=== PATIENT | female | born 1960 | race Caucasian/White ===

== ENCOUNTER 2020-01-03 12:17 | Outpatient (CLI) | payer BC, SELFPAY ==
--- NOTE | 2020-01-03 13:31 | ECG_ITS ---
Measurements Intervals [place] Rate: 57 P: 0 OR: 167 QRS: -29 QRSD: 94 T: 17 QT: 451 QTc: 442 Interpretive Statements SINUS BRADYCARDIA DELAYED PRECORDIAL R/S TRANSITION BORDERLINE T WAVE ABNORMALITY- INFERIOR LEADS BORDERLINE ECG Electronically Signed On 01-03-2020 14:18:04 CLIENT SERVICE EXECUTIVE by Juvencio North D.O.
[2020-01-03 14:16] LABS: Basophils Absolute Auto 0.1 K/mm3 (0.0-0.1); Basophils Percent Auto 0.7 % (0.2-1.2); Eosinophils Absolute Auto 0.3 K/mm3 (0-0.3); Eosinophils Percent Auto 3.5 % (0-4.4); Hemoglobin 14.9 g/dL (12.0-15.0); Immature Granulocyte Absolute 0.02 K/mm3 (0.00-0.031); Immature Granulocyte Percent A 0.2 % (0-0.5); Lymphocytes Absolute Auto 3.64 K/mm3 (0.9-3.2); Lymphocytes Percent Auto 38.4 % (18.3-44.2); Mean Corpuscular HGB Conc 32.4 g/dl (32-36); Mean Corpuscular Hemoglobin 31.8 pg (26-34); Mean Corpuscular Volume 98.1 fl (80-100); Mean Platelet Volume 11.6 fl (7.4-10.4); Monocytes Absolute Auto 0.9 K/mm3 (0.1-0.6); Monocytes Percent Auto 9.3 % (2.6-8.5); Neutrophils Absolute Auto 4.5 K/mm3 (1.3-6.7); Neutrophils Percent Auto 47.9 % (45.5-73.1); Platelet Count Result 228 k/mm3 (150-375); Red Blood Count 4.69 M/mm3 (4.2-5.4); Red Cell Distribution Width 13.3 % (11.5-14.5); White Blood Count 9.5 K/mm3 (4.5-10.0)
[2020-01-03 14:24] LABS: Urine Cotinine NEGATIVE
[2020-01-03 14:24] LABS: Hemoglobin A1C 5.5 % (<5.7)
[2020-01-03 14:26] LABS: INR 0.9; Prothrombin Time 11.8 Seconds (11.1-14.7)
[2020-01-03 14:33] LABS: Albumin Level 4.4 g/dL (3.5-5.1); Blood Urea Nitrogen 12 mg/dL (7-17); Calcium 9.5 mg/dL (8.4-10.2); Carbon Dioxide 28 mmol/L (22-30); Chloride 98 mmol/L (98-107); Estimated Glomerular Filt Rate > 60; Glucose 95 mg/dL (65-105); Sodium 140 mmol/L (137-145)
[2020-01-03 14:53] LABS: Add Urine Microscopic? YES; Appearance Urine Clear (Clear); Bilirubin Urine Negative (Negative); Blood Urine Negative (Negative); Color Urine Yellow (Yellow); Glucose Urine UA Negative (Negative); Ketones Urine 1+ mg/dL (Negative); Leukocyte Esterase Ur Negative LEU/UL (Negative); Mucus Urine Rare /lpf; Nitrate Urine Negative (Negative); Protein Urine Negative (Negative); RBC Urine 0-2 /hpf (0-2); Specific Grav Ur 1.014 (1.001-1.035); Squamous Epithelial Cell Urine Rare /hpf (Few); Urobilinogen Urine Negative mg/dL (<2.0); WBC Urine 0-3 /hpf
== END 2020-01-03 12:18 | disposition home or self-care (01) ==
LOC: ANHSURGERY 12:22
PROVIDERS: PCP Internal Medicine; Visit Provider Orthopaedic Surgery
DX: M17.11 Unilateral primary osteoarthritis, right knee (principal); R94.31 Abnormal electrocardiogram [ECG] [EKG]
CPT/HCPCS: 36415; 80048; 80307; 81001; 82040; 83036; 85025; 85610; 85730; 87081; 93005

== ENCOUNTER 2020-01-12 13:33 | Outpatient (CLI) | payer BC, SELFPAY ==
--- NOTE | ~2020-01-12 | US_ITS ---
EXAMINATION: US venous doppler LE EXAM DATE: 01/12/2020 14:19 INDICATION: Preoperative right knee replacement. TECHNIQUE: Multiple grayscale, color flow and Doppler images of the lower extremity deep venous syste ms bilaterally were obtained and reviewed. There is no prior study for comparison. FINDINGS: Right side: The right common femoral, femoral and profunda veins demonstrate normal color flow, respi ratory variation, augmentation and compressibility. Compressibility, color flow confirmed within the right popliteal, posterior tibial, peroneal, and greater saphenous veins. Left side: The left common femoral, femoral and profunda veins demonstrate normal color flow, respira tory variation, augmentation and compressibility. Compressibility, color flow confirmed within the l eft popliteal, posterior tibial, peroneal, and greater saphenous veins. IMPRESSION: 1. No lower extremity deep venous thrombosis bilaterally. Reviewed, dictated and finalized at location B.
== END 2020-01-12 13:34 | disposition home or self-care (01) ==
LOC: ANHIMG 13:35
PROVIDERS: PCP Internal Medicine; Visit Provider Orthopaedic Surgery
DX: Z01.818 Encounter for other preprocedural examination (principal); M17.11 Unilateral primary osteoarthritis, right knee
CPT/HCPCS: 93970

== ENCOUNTER 2020-05-12 10:31 | Outpatient (CLI) | payer BC, SELFPAY ==
[2020-05-12 11:13] LABS: Blood Urea Nitrogen 10 mg/dL (7-17); Calcium 8.8 mg/dL (8.4-10.2); Carbon Dioxide 28 mmol/L (22-30); Chloride 106 mmol/L (98-107); Cholesterol 169 mg/dL (0-200); Estimated Glomerular Filt Rate > 60; Glucose 106 mg/dL (65-105); HDL Direct 87 mg/dL; Potassium 3.8 mmol/L (3.4-5.0); Sodium 139 mmol/L (137-145); Triglycerides 67 mg/dL (<150)
[2020-05-12 11:23] LABS: LDL Cholesterol Direct 57 mg/dL
== END 2020-05-12 10:32 | disposition home or self-care (01) ==
LOC: ANHLAB 10:33
PROVIDERS: PCP Internal Medicine; Visit Provider Internal Medicine
DX: Z13.6 Encounter for screening for cardiovascular disorders (principal); F34.1 Dysthymic disorder
CPT/HCPCS: 36415; 80048; 80061; 84443

== ENCOUNTER 2020-06-14 09:15 | Outpatient (CLI) | payer BC, SELFPAY ==
--- NOTE | ~2020-06-14 | US_ITS ---
EXAMINATION: US aorta DATE: 06/14/2020 10:07 INDICATION: Family history of abdominal aortic aneurysm and ischemic heart disease TECHNIQUE: Grayscale, color Doppler, and pulsed Doppler images of the aorta and common iliac arteries were obtained. COMPARISON: None. FINDINGS: The proximal aorta measures 2.6 cm. The mid aorta measures 1.1 cm. The distal aorta measures 2.0 cm. The right common iliac artery measures 1.2 cm. The left common iliac artery measures 1.1 cm. IMPRESSION: 1. Normal caliber abdominal aorta. Reviewed, dictated and finalized at location A.
== END 2020-06-14 09:16 | disposition home or self-care (01) ==
PROVIDERS: PCP Internal Medicine; Visit Provider Nurse Practitioner
DX: Z82.49 Family history of ischemic heart disease and other diseases of the circulatory system (principal)
CPT/HCPCS: 76775

== ENCOUNTER 2022-02-22 00:34 | Day surgery (SDC) | payer BC, SELFPAY ==
[2022-02-08 13:16] VITALS: BMI 34.5
[2022-02-22 10:50] VITALS: BP 128/78; PULSE 70; RESP 19; TEMP 36.6; O2SAT 98
[2022-02-22] MEDS: LACTATED RINGERS 1,000 ML 150 ML IV CONT (11:04)
--- NOTE | 2022-02-22 11:29 | PM.HPGS ---
History of Present Illness History of Present Illness Consent: Risks, benefits, and alternatives have been discussed and questions answered. Patient agrees to proceed with procedure. Chief complaint: neoplasm screening Narrative: Kiley Ann is a 61 year old female here for screening colonoscopy, last one about 6-7 years ago. Review of Systems Constitutional: Constitutional: Denies headache(s) and Denies weakness Eyes: Eyes: Denies blurry vision ENT: Reports Normal hearing present, Denies headache(s) and Denies neck pain Cardiovascular: Cardiovascular: Denies chest pain and Denies dyspnea Respiratory: Respiratory: Denies dyspnea Gastrointestinal: Gastrointestinal: Reports no additional gastrointestinal complaints Genitourinary: Genitourinary: Denies dysuria Musculoskeletal: Musculoskeletal: Denies neck pain Integumentary/Breasts: Skin/Breast: Denies dry skin Neurologic: Reports Normal hearing present, Denies headache(s) and Denies weakness Psychiatric: Psychiatric: Denies anxiety Endocrine: Endocrine: Denies change in body appearance Hematologic/Lymphatic: Hematologic/Lymphatic: Denies easy bleeding Allergic/Immunologic: Allergic/Immunologic: Denies urticaria PMFSH Past Medical History Medical History Actinic keratosis Anxiety Depression Family history of abdominal aortic aneurysm (AAA) Great toe pain Injury of left toe Left knee DJD OAB (overactive bladder) Preop examination Pulmonary embolism Right knee DJD Skin cancer screening Urinary frequency Surgical History Surgical History S/P splenectomy Status post wisdom tooth extraction Family History Family History Mother Hypertension, Onset Age: 73 Family history of arthritis Family history of diabetes mellitus in first degree relative Family history of coronary artery disease Patient's mother is Family history of malignant neoplasm of uterus Acute myocardial infarction, Onset Age: 73 Diabetes mellitus, Onset Age: 73 Family history of malignant neoplasm of cervix, Onset Age: 73 Grandparent Hypertension Sibling Family history of coronary artery disease Patient's brother is Acute myocardial infarction Father Patient's father is Family history of aortic aneurysm Acute myocardial infarction, Onset Age: 72 Other Family history of attention deficit hyperactivity disorder (ADHD) Family history of cardiovascular disease Family history of mental disorder Social History Social History Smoking status: Never smoker Second hand tobacco smoke exposure: No Alcohol intake: current Drinks per week: 14 Alcohol use details: Frequently Substance use: never Substance use type: does not use Living arrangements: alone Spiritual care concerns: No Meds Home Medications and Allergies Home Medications Medication Instructions Recorded Confirmed Type aspirin [Adult Low Dose Aspirin] 81 mg PO DAILY 01/03/20 02/08/22 History escitalopram oxalate 20 mg tablet See Rx Instructions .ROUTE 12/12/20 02/08/22 Rx .COMPLEX #90 tablet zkgqsgpaldgl-Uh-cnak-minerals 1 tablet PO EVERY OTHER DAY 02/26/21 02/08/22 History valacyclovir 500 mg tablet 500 mg PO DAILY 06/04/21 02/08/22 History mirabegron 50 mg tablet,extended See Rx Instructions .ROUTE 11/22/21 02/08/22 Rx release 24 hr .COMPLEX #90 tablet Allergies Allergy/AdvReac Type Severity Reaction Status Date / Time oxybutynin Allergy Severe DRY MOUTH, Verified 02/22/22 10:49 SORES codeine AdvReac Severe DROWSINESS Verified 02/22/22 10:49 Vital Signs Vital Signs - 24 hr 02/22/22 10:50 Temperature 98 F Pulse Rate 70 Respiratory Rate 19 Blood Pressure 128/78 Pulse Oximetry 98
--- NOTE | 2022-02-22 11:32 | WPDANESEPPF ---
Anes - Initial Pre Proc Eval Procedure: Operation Date: 02/22/22 11:30 Proposed Procedures p Screening Colonoscopy - Maninder Diaz MD Date/Time: 02/22/22 11:32 Surgeon: Maninder Diaz MD Pre Op Diagnosis: neoplasm screening Patient Data Age: 61 Gender: F Height: 1.7 m Weight: 98.6 kg Last Vital Signs Temp 98 F 02/22/22 10:50 Pulse 70 02/22/22 10:50 Resp 19 02/22/22 10:50 BP 128/78 02/22/22 10:50 Pulse Ox 98 02/22/22 10:50 Allergies Allergy/AdvReac Type Severity Reaction Status Date / Time oxybutynin Allergy Severe DRY MOUTH, Verified 02/22/22 10:49 SORES codeine AdvReac Severe DROWSINESS Verified 02/22/22 10:49 Home Medications Medication Instructions Recorded Confirmed Type aspirin [Adult Low Dose Aspirin] 81 mg PO DAILY 01/03/20 02/08/22 History escitalopram oxalate 20 mg tablet See Rx Instructions .ROUTE 12/12/20 02/08/22 Rx .COMPLEX #90 tablet ojnugvsctobp-Mh-vuny-minerals 1 tablet PO EVERY OTHER DAY 02/26/21 02/08/22 History valacyclovir 500 mg tablet 500 mg PO DAILY 06/04/21 02/08/22 History mirabegron 50 mg tablet,extended See Rx Instructions .ROUTE 11/22/21 02/08/22 Rx release 24 hr .COMPLEX #90 tablet Patient hx anesthesia problems: none Family hx anesthesia problems: none Results Review: All pre-operative results and documents have been reviewed as part of the pre-operative evaluation. [facility] Past Medical History Medical History Actinic keratosis Anxiety Depression Family history of abdominal aortic aneurysm (AAA) Great toe pain Injury of left toe Left knee DJD OAB (overactive bladder) Preop examination Pulmonary embolism Right knee DJD Skin cancer screening Urinary frequency Surgical History Surgical History S/P splenectomy Status post wisdom tooth extraction Family History Family History Mother Hypertension, Onset Age: 73 Family history of arthritis Family history of diabetes mellitus in first degree relative Family history of coronary artery disease Patient's mother is Family history of malignant neoplasm of uterus Acute myocardial infarction, Onset Age: 73 Diabetes mellitus, Onset Age: 73 Family history of malignant neoplasm of cervix, Onset Age: 73 Grandparent Hypertension Sibling Family history of coronary artery disease Patient's brother is Acute myocardial infarction Father Patient's father is Family history of aortic aneurysm Acute myocardial infarction, Onset Age: 72 Other Family history of attention deficit hyperactivity disorder (ADHD) Family history of cardiovascular disease Family history of mental disorder Social History Social History Smoking status: Never smoker Second hand tobacco smoke exposure: No Alcohol intake: current Drinks per week: 14 Alcohol use details: Frequently Substance use: never Substance use type: does not use Living arrangements: alone Spiritual care concerns: No Anes - Eval Final PreProcedure Day of Procedure 02/22/22 11:32 Patient weight: obese Heart: regular rate and rhythm Lungs: clear to auscultation Airway: Mallampati scale class II Neurological: alert and oriented Last oral intake: >/= 8 hours ASA classification: II Emergent: no Anesthetic plan: proceed Anesthesia type and monitoring: general GIVS and standard monitoring Results Review: All pre-operative results and documents have been reviewed as part of the pre-operative evaluation. Informed Consent: The patient's anesthetic plan and its attendant risks and benefits were discussed with the patient/family/POA. Questions were solicited and answers provided to the satisfaction of the patient/family/
[2022-02-22 11:53] VITALS: BP 84/46; PULSE 73; RESP 17; O2SAT 98
[2022-02-22 12:03] VITALS: BP 116/66; PULSE 70; RESP 14; O2SAT 98
[2022-02-22 12:15] VITALS: BP 114/62; PULSE 71; RESP 12; O2SAT 98
== END 2022-02-22 12:20 | disposition home or self-care (01) ==
PROVIDERS: PCP Internal Medicine; Visit Provider Internal Medicine Gastroenterology
PROC: 0DJD8ZZ Inspection of Lower Intestinal Tract, Via Natural or Artificial Opening Endoscopic (ICD-10-PCS; CPT 45378; principal; 2022-02-22 11:30)
DX: Z12.11 Encounter for screening for malignant neoplasm of colon (principal); K63.5 Polyp of colon; K57.30 Diverticulosis of large intestine without perforation or abscess without bleeding; K64.8 Other hemorrhoids; Z79.82 Long term (current) use of aspirin; F41.8 Other specified anxiety disorders; N32.81 Overactive bladder; E66.9 Obesity, unspecified; Z68.34 Body mass index [BMI] 34.0-34.9, adult
CPT/HCPCS: 45380; 88305; J2704; J7120

== ENCOUNTER 2022-04-19 13:56 | Outpatient (CLI) | payer BC, SELFPAY ==
--- NOTE | ~2022-04-19 | DEXA_ITS ---
Bone Density Report Name: DEBORAH MCFADDEN Age: 61 Sex: Female Ethnicity: White Date of : 1960 Indication: postmenopausal; screening for osteoporosis; height loss; prior fracture; Referring Provider: LETHA MARIE Study: Bone densitometry was performed. Exam Date: April 19, 2022 Accession number: [id number] Bone Density: Region BMD T-score Z-score Classification AP Spine(L1-L4) 0.921 -1.1 0.2 Osteopenia Femoral Neck (Left) 0.696 -1.4 -0.1 Osteopenia Total Hip (Left) 0.846 -0.8 0.1 Normal Femoral Neck (Right) 0.706 -1.3 0.0 Osteopenia Total Hip (Right) 0.819 -1.0 -0.1 Normal Total Hip Mean 0.832 -0.9 0.0 Normal World Health Organization criteria for BMD impression classify patients as: Normal (T-score at or above -1.0), Osteopenia (T-score between -1.0 and -2.5), or Osteoporosis (T-score at or below -2.5). 10-year Fracture Risk(1): Major Osteoporotic Fracture 12% Hip Fracture 0.8% Reported Risk Factors: [place] (), Neck BMD=0.696, BMI=37.5, previous fracture (1) FRAX(R) Version 3.08. Fracture probability calculated for an untreated patient. Fracture probability may be lower if the patient has received treatment. Clinical Information Provided by Patient: Has had a low trauma fracture Patient maximum height was 67 Menopause Age: 52 No regular weight bearing exercise Drinks caffeinated beverages Onset of menses at age 13 Number of children 1 Impression: The patient has low bone mass, based on the Left Femoral Neck T-score. The patient has an estimated ten-year risk of hip fracture of 0.8% and an estimated ten-year risk of major fracture of 12%, based on the WHO FRAX algorithm. The patient has risk factors, including: previous fracture. Discussion: BONE DENSITY IS LOW AT ONE OR MORE SKELETAL SITES. This patient's lowest T-score is low at one or more skeletal sites. It meets the World Health Organization's (WHO) criteria for ?low bone mass? (T-score between -1.0 and -2.5). The patient's 10-year risk of fracture as calculated by FRAX is less than the threshold where pharmacological therapy is recommended by the National Osteoporosis Foundation (NOF). However, all treatment decisions require clinical judgment and consideration of individual patient factors, including patient preferences, comorbidities, previous drug use, risk factors not captured in the FRAX model (e.g., frailty, falls, vitamin D deficiency, increased bone turnover, interval significant decline in bone density) and possible under or overestimation of fracture risk by FRAX. The patient should follow a healthful lifestyle (good nutrition with adequate calcium and vitamin D, and appropriate weight-bearing exercise). Follow-Up: Consider repeating this study in 2 to 3 years to reassess this patient's stat
== END 2022-04-19 13:57 | disposition home or self-care (01) ==
LOC: ANHIMG 13:57
PROVIDERS: PCP Internal Medicine; Visit Provider Nurse Practitioner
DX: Z78.0 Asymptomatic menopausal state (principal); M85.88 Other specified disorders of bone density and structure, other site; M85.852 Other specified disorders of bone density and structure, left thigh; M85.851 Other specified disorders of bone density and structure, right thigh
CPT/HCPCS: 77080

== ENCOUNTER 2022-10-14 13:12 | Outpatient (CLI) | payer BC, SELFPAY ==
--- NOTE | ~2022-10-14 | XR_ITS ---
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 RESULT: Lines, tubes, and devices: None. Lungs and pleura: Clear. Cardiomediastinal silhouette: Stable. Other: No acute osseous or upper abdominal finding. Calcified splenic artery aneurysm. Right upper q uadrant surgical clip IMPRESSION: No acute cardiopulmonary process. Reviewed, dictated and finalized at location K. [employer]IV[employer]ITY FACULTY MEMBER
== END 2022-10-14 13:13 | disposition home or self-care (01) ==
PROVIDERS: PCP Internal Medicine; Visit Provider Internal Medicine
DX: J06.9 Acute upper respiratory infection, unspecified (principal)
CPT/HCPCS: 71046

== ENCOUNTER 2022-12-10 11:41 | Outpatient (NON) | payer BC, SELFPAY | END 2022-12-10 11:42 | disposition home or self-care (01) | PROVIDERS: PCP Internal Medicine; Visit Provider Nurse Practitioner | DX: D49.2 Neoplasm of unspecified behavior of bone, soft tissue, and skin (principal) | CPT/HCPCS: 88305 ==

== ENCOUNTER 2024-01-09 15:12 | Outpatient (CLI) | payer BC, SELFPAY ==
--- NOTE | ~2024-01-09 | XR_ITS ---
EXAMINATION: XR foot LT 2V DATE: 01/09/2024 15:24 INDICATION: Left foot pain. TECHNIQUE: 2 views of left foot were obtained. COMPARISON: Left foot radiographs 05/09/20 FINDINGS: There is moderate hallux valgus. No acute fracture. There is an old healed fracture of neck of fifth metatarsal. There is mild osteoarthritis of first metatarsophalangeal joint and some of the interphalangeal and midfoot joints. There is an enthesophyte at plantar aspect of calcaneal tuberosi ty. IMPRESSION: 1. Moderate hallux valgus. 2. Mild polyarticular osteoarthritis. Reviewed, dictated and finalized at location E. C ARTIST
== END 2024-01-09 15:13 | disposition home or self-care (01) ==
LOC: ANHIMG 15:14
PROVIDERS: PCP Nurse Practitioner Family; Visit Provider Nurse Practitioner Family
DX: M19.072 Primary osteoarthritis, left ankle and foot (principal); M20.12 Hallux valgus (acquired), left foot
CPT/HCPCS: 73620

== ENCOUNTER 2025-01-17 10:18 | Outpatient (CLI) | payer BC, SELFPAY ==
--- NOTE | ~2025-01-17 | DEXA_ITS ---
Bone Density Report Name: DEBORAH MCFADDEN Age: 64 Sex: Female Ethnicity: White Date of : 1960 Indication: osteopenia; height loss; Referring Provider: ORQUIDEA GRADY Study: Bone densitometry was performed. Exam Date: January 17, 2025 Accession number: [id number] Bone Density: Region BMD T-score Z-score Classification AP Spine(L1-L4) 0.900 -1.3 0.2 Osteopenia Femoral Neck (Left) 0.644 -1.8 -0.5 Osteopenia Total Hip (Left) 0.840 -0.8 0.2 Normal Femoral Neck (Right) 0.670 -1.6 -0.2 Osteopenia Total Hip (Right) 0.816 -1.0 0.1 Normal Total Hip Mean 0.828 -0.9 0.2 Normal World Health Organization criteria for BMD impression classify patients as: Normal (T-score at or above -1.0), Osteopenia (T-score between -1.0 and -2.5), or Osteoporosis (T-score at or below -2.5). 10-year Fracture Risk(1): Major Osteoporotic Fracture 9.0% Hip Fracture 1.0% Reported Risk Factors: [place] (), Neck BMD=0.644, BMI=32.7 (1) FRAX(R) Version 3.08. Fracture probability calculated for an untreated patient. Fracture probability may be lower if the patient has received treatment. Previous Exams: Region Exam Age BMD T-score BMD Change BMD Change Date g/cm2 vs Baseline vs Previous AP Spine (L1-L4) 01/17/2025 64 0.900 -1.3 -0.021 (-2.3%) -0.021 (-2.3%) 04/19/2022 61 0.921 -1.1 Total Hip(Left) 01/17/2025 64 0.840 -0.8 -0.005 (-0.6%) -0.005 (-0.6%) 04/19/2022 61 0.846 -0.8 Total Hip(Right) 01/17/2025 64 0.816 -1.0 -0.002 (-0.3%) -0.002 (-0.3%) 04/19/2022 61 0.819 -1.0 *Denotes significance at 95% confidence level, LSC for AP Spine = 0.022 g/cm2, LSC for Total Hip = 0.027 g/cm2 Clinical Information Provided by Patient: Has used the following medications: Vitamin D, Calcium Patient maximum height was 67 Menopause Age: 52 No regular weight bearing exercise Drinks caffeinated beverages Onset of menses at age 14 Number of children 1 Impression: The patient has low bone mass, based on the Left Femoral Neck T-score. The patient has an estimated ten-year risk of hip fracture of 1% and an estimated ten-year risk of major fracture of 9%, based on the WHO FRAX algorithm. No significant bone loss was observed. Discussion: BONE DENSITY IS LOW AT ONE OR MORE SKELETAL SITES. This patient's lowest T-score is low at one or more skeletal sites. It meets the World Health Organization's (WHO) criteria for ?low bone mass? (T-score between -1.0 and -2.5). The patient's 10-year risk of fracture as calculated by FRAX is less than the threshold where pharmacological therapy is recommended by the National Osteoporosis Foundation (NOF). However, all treatment decisions require clinical judgment and consideration of individual patient factors, including patient preferences, comorbidities, previous drug use, risk factors not captured in the FRAX model (e.g., frailty, falls, vitamin D deficiency, increased bone turnover, interval significant decline in bone density) and possible under or overestimation of fracture risk by FRAX. The patient should follow a healthful lifestyle (good nutrition with adequate calcium and vitamin D, and appropriate weight-bearing exercise). Follow-Up: Consider repeating this study in 2 to 3 years to reassess this patient's status, or sooner if there is some new clinical indication. Reported by: RON on 01/17/2025 10:51:00 AM. Reviewed, dictated and finalized at location A.
--- OUTSIDE RECORDS SUMMARY | 2025-01-17 12:07 | XMS_ITS | Clinical Summary ---
Author Organization [facility] Address [address] [place] [address] Care Team Providers Care Computer Assembler Name Role Phone Vince Steinberg MD Primary Care Provider [phone] [facility],non-owned Affiliates and Associated Physician Practices is amultiple site organization consisting of ambulatory clinics and hospital sitesin [place], [place], [place] and [place]. This disclosure is being madepursuant to the Care Everywhere program and may not contain all information available regarding this patient. Last updated 18.[facility] Social History Tobacco Use Types Packs/Day Years Used Date Smoking Tobacco: Never Assessed Sex and Gender Information Value Date Recorded Sex Assigned at Not on file Gender Identity Not on file Sexual Orientation Not on file Plan of Treatment Health Maintenance Due Date Last Done Comments COLOGUARD (AGES 45-75) - COL ON CA SCREENING 1960 COLON MONITORING 1960 COLONOSCOPY - COLON CA SCREENING 1962 CT COLONOGRAPHY - COLON CA SCREENING 1960 Colorectal Cancer Screening 1960 FIT - COLON CA SCREENING 1962 FLEX SIG - COLON CA SCREENING 1960 MAMMOGRAM 1962 PAP SMEAR 1962 HIV SCREENING 1977 HEPATITIS C SCREENING 07/16/1980 DTAP/TDAP/TD VACCINES (1 - Tdap) 1981 PNEUMOCOCCAL VACCINE 50+ (1 of 1 - PCV) 2012 ZOSTER VACCINE (1 of 2) 2012 COVID-19 VACCINE ( - 2023-2 5 season) 2024 INFLUENZA VACCINE (#1) 2024 DEPRESSION SCREENING 11/03/2024 LIPID TESTING 05/30/2026 05/30/2021 Respiratory Syncytial Virus (RSV) Vaccine Pt: or over 60 yrs (1 - 1-dose 75+ series) 2037 HEPATITIS B VACCINE Aged Out No longe r eligible based on patient's age to complete this topic HIB VACCINE Aged Out No longer eligi ble based on patient's age to complete this topic HPV VACCINE Aged Out No longer eligi ble based on patient's age to complete this topic MENINGOCOCCAL (Group B) VACC INE SHARED DECISION-MAKING Aged Out No longer eligibl e based on patient's age to complete this topic MENINGOCOCCAL GROUPS A/C/Y/W VACCINE Aged Out No longer eligible b ased on patient's age to complete this topic PNEUMOCOCCAL VACCINE Aged Out No long er eligible based on patient's age to complete this topic Procedures Procedure Name Priority Date/Time Associated Diagnosis Comments LIPID PROFILE Routine 05/30/2021 8:35 AM CDT IGT (impaired glucose tolerance) Lipid screening Menopause Reactive depression from Last 3 Months or Most Recently Relevant to Health Maintenance Results * LIPID PROFILE (05/30/2021 8:35 AM CDT) Pathologist [facility] Cholesterol 170 <200 mg/dL 05/30/2021 9:09 AM CDT [facility] Triglycerides 47 <150 mg/dL 05/30/2021 9:09 AM CDT [facility] VLDL Calculated 9 <31 mg/dL 9:09 AM CDT [facility] HDL Cholesterol 87 >40 mg/dL 9:09 AM CDT [facility] LDL Calculated 74 <160 mg/dL 05/30/2021 9:09 AM CDT [facility] Blood BLOOD SPECIMEN / Unknown Lab Venipuncture / Unknown 05/30/2021 8:35 AM CDT 05/30/2021 8:44 AM CDT Narrative [facility] - 05/30/2021 9:09 AM CDT Lipid Profile Comment: *Risk Factors modify LDL Goals. Below is the desirable LDL goal for each combination of risk factors. 0-1 Risk Factor <160 mg/dL Multiple (2+) Risk Factors <130 mg/dL CHD or other forms of atherosclerosis <100 mg/dL Diabetes <100 mg/dL Note: This test is for fasting patients only. A non-fasting state may alter some of these results. Franchesca Elizondo WOOD CASKET MAKER-NUCLEAR WEAPONS CUSTODIAN LAB - CHEMISTRY ORDERABLES [facility] [address] [phone] from Last 3 Months or Most Recently Relevant to Health Maintenance Care Teams Computer Assembler Relationship Specialty [place] [id number] [address] PCP - General 12/30/22
--- OUTSIDE RECORDS SUMMARY | 2025-01-17 12:07 | XMS_ITS | Referral Summary ---
Author Organization [facility] Address [address] [facility] [place] [address] Care Team Providers Care Clamp Jig Assembler Name Role Phone Vince Steniberg MD Primary Care Provider [phone] Source Comments [facility],non-general [facility] Affiliates and Associated Physician Practices is amultiple site organization consisting of ambulatory clinics and hospital sitesin [place], [place], [place] and [place]. This disclosure is being madepursuant to the Care Everywhere program and may not contain all information available regarding this patient. Last updated 18.[facility] [place] Social History Tobacco Use Types Packs/Day Years Used Date Smoking Tobacco: Never Assessed Sex and Gender Information Value Date Recorded Sex Assigned at Not on file Gender Identity Not on file Sexual Orientation Not on file Plan of Treatment Not on file Procedures Procedure Name Priority Date/Time Associated Diagnosis Comments LIPID PROFILE Routine 05/30/2021 8:35 AM CDT IGT (impaired glucose tolerance) Lipid screening Menopause Reactive depression from Last 3 Months or Most Recently Relevant to Health Maintenance Results * LIPID PROFILE (05/30/2021 8:35 AM CDT) Cholesterol 170 <200 mg/dL 05/30/2021 9:09 AM CDT [facility] Triglycerides 47 <150 mg/dL 05/30/2021 9:09 AM CDT [facility] VLDL Calculated 9 <31 mg/dL 9:09 AM CDT [facility] HDL Cholesterol 87 >40 mg/dL 9:09 AM CDT [facility] LDL Calculated 74 <160 mg/dL 05/30/2021 9:09 AM CDT [facility] Blood BLOOD SPECIMEN / Unknown Lab Venipuncture / Unknown 05/30/2021 8:35 AM CDT 05/30/2021 8:44 AM CDT Narrative [facility] - 05/30/2021 9:09 AM CDT Lipid [...] some of these results. Franchesca Elizondo WOOD SKI MAKER-SPACE AND STORAGE CLERK LAB - CHEMISTRY ORDERABLES [facility] [address] [phone] from Last 3 Months or Most Recently Relevant to Health Maintenance Care Teams Clamp Jig Assembler Relationship Specialty [place] [id number] [address] PCP - General 12/30/22
--- OUTSIDE RECORDS SUMMARY | 2025-01-17 12:07 | XMS_ITS | Patient Health Summary ---
Author Organization [facility] Address [address] [place] [address] Care Team Providers Care Vehicle Monitor Technician Name Role Phone Vince Steinberg MD Primary Care Provider [phone] [facility],non-owned Affiliates and Associated Physician Practices is amultiple site organization consisting of ambulatory clinics and hospital sitesin [place], [place], [place] and [place]. This disclosure is being madepursuant to the Care Everywhere program and may not contain all information available regarding this patient. Last updated 18.[facility] Social History Tobacco Use Types Packs/Day Years Used Date Smoking Tobacco: Never Assessed Sex and Gender Information Value Date Recorded Sex Assigned at Not on file Gender Identity Not on file Sexual Orientation Not on file Procedures * VITAMIN D 25-HYDROXY(Performed 05/30/2021) Performed for IGT (impaired glucose tolerance), Lipid screening, Menopause, Reactive depression * HEMOGLOBIN A1C(Performed 05/30/2021) Performed for IGT (impaired glucose tolerance), Lipid screening, Menopause, Reactive depression * LIPID PROFILE(Performed 05/30/2021) Performed for IGT (impaired glucose tolerance), Lipid screening, Menopause, Reactive depression * COMPREHENSIVE METABOLIC PANEL(Performed 05/30/2021) Performed for IGT (impaired glucose tolerance), Lipid screening, Menopause, Reactive depression * TSH REFLEX FREE T4(Performed 05/30/2021) Performed for IGT (impaired glucose tolerance), Lipid screening, Menopause, Reactive depression Results * TSH REFLEX FREE T4 (05/30/2021 8:35 AM CDT) TSH 1.74 0.35 - 4.94 uIU/mL 05/30/2021 9:34 AM CDT [facility] Comment: T4 Free not Performed. TSH within normal range. Blood BLOOD SPECIMEN / Unknown Lab Venipuncture / Unknown 05/30/2021 8:35 AM CDT 05/30/2021 8:44 AM CDT Franchesca Elizondo [facility] - CHEMISTRY ORDERABLES Performing Organization Address [facility] Co de Phone Number [facility] [address] [place] [address] * HEMOGLOBIN A1C (05/30/2021 8:35 AM CDT) Hemoglobin A1c 5.4 4.2 - 5.6 % 05/30/2021 9:09 AM CDT [facility] Estimated Average Glucose 108 mg/dL 05/30/2021 9:09 AM CDT [facility] Blood BLOOD SPECIMEN / Unknown Lab Venipuncture / Unknown 05/30/2021 8:35 AM CDT 05/30/2021 8:44 AM CDT Narrative [facility] - 05/30/2021 9:09 AM CDT Estimated Average Glucose (eAG) Hemoglobin A1C (%) eAG (mg/dL) 5 97 ( 76-120) 6 126 (100-152) 7 154 (123-185) 8 183 (147-217) 9 212 (172-249) 10 240 (193-282) 11 269 (217-314) 12 298 (240-347) Interpretation: <5.7 % non-diabetic 5.7-6.4 % pre-diabetic > or =6.5 % diabetic [facility]sca [facility]iz[facility]Y [facility]AB[facility] Performing Organization Address [facility]/ZIP Co de Phone Number [facility] [address] [place] [address] * VITAMIN D 25-HYDROXY (05/30/2021 8:35 AM CDT) Vitamin D, 25 Hydroxy 30.1 30 - 96 ng/mL 05/30/2021 9:34 AM CDT [facility] Blood BLOOD SPECIMEN / Unknown Lab Venipuncture / Unknown 05/30/2021 8:35 AM CDT 05/30/2021 8:44 AM CDT [facility] - 05/30/2021 9:34 AM CDT Vitamin D Status: Deficiency <13 ng/mL Insufficiency 13-29 ng/mL Sufficiency 30-96 ng/mL Toxicity >96 ng/mL Franchesca Elizondo [employer] LAB - CHEMISTRY ORDERABLES [facility] [address] [phone] * (ABNORMAL) COMPREHENSIVE METABOLIC PANEL (05/30/2021 8:35 AM CDT) Sodium 140 136 - 145 mmol/L 05/30/2021 9:09 AM CDT [facility] Potassium 3.8 3.5 - 5.1 mmol/L 05/30/2021 9:09 AM CDT [facility] Chloride 103 98 - 107 mmol/L 05/30/2021 9:09 AM CDT [facility] CO2 27 22 - 29 mmol/L 05/30/2021 9:09 AM CDT [facility] Anion Gap 10 9 - 16 mmol/L 05/30/2021 9:09 AM CDT [facility] Glucose 104 70 - 105 mg/dL 05/30/2021 9:09 AM CDT [facility] BUN 8(L) 9.8 - 20.1 mg/dL 05/30/2021 9:09 AM CDT [facility] Creatinine 0.75 0.57 - 1.11 mg/dL 05/30/2021 9:09 AM CDT [facility] BUN/Creatinine Ratio 10.7(L) 11.2 - 18.1 05/30/2021 9:09 AM CDT [facility] Calcium 9.3 8.4 - 10.2 mg/dL 05/30/2021 9:09 AM CDT [facility] Protein Total 6.8 6.4 - 8.3 gm/dL 05/30/2021 9:09 AM CDT [facility] Albumin 4.0 3.5 - 5.0 gm/dL 05/30/2021 9:09 AM CDT [facility] ALT 13 0 - 55 U/L 05/30/2021 9:09 AM CDT [facility] AST 18 5 - 34 U/L 05/30/2021 9:09 AM CDT [facility] Alkaline Phosphatase 97 40 - 150 U/L 05/30/2021 9:09 AM CDT [facility] Bilirubin Total 1.8(H) 0.2 - 1.2 mg/dL 05/30/2021 9:09 AM CDT [facility] Globulin Total 2.8 1.3 - 4.7 gm/dL 05/30/2021 9:09 AM CDT [facility] Albumin/Globulin Ratio 1.4 1.1 - 2.2 05/30/2021 9:09 AM CDT [facility] Osmolality Calculated 269 260 - 284 mOsm/kg 05/30/2021 9:09 AM CDT [facility] eGFR by MDRD >60 >60 mL/min/1.7 3m2 05/30/2021 9:09 AM CDT [facility] eGFR by MDRD >60 >60 mL/min/1.7 3m2 05/30/2021 9:09 AM CDT [facility] Blood BLOOD SPECIMEN / Unknown Lab Venipuncture / Unknown 05/30/2021 8:35 AM CDT 05/30/2021 8:44 AM CDT [facility] - 05/30/2021 9:09 AM CDT [facility] Comment: The [place] [employer] recommends a fasting glucose concentration of 99 mg/dL as the upper limit of normal. Note:EGFR Reference Ranges have been established for adults between the ages of 18 and 70. STAGES OF CHRONIC KIDNEY DISEASE Stage Description EGFR 1. Kidney damage with normal or increased EGFR > or =90 mL/min/1.73 m 2. Kidney damage with mildly decreased EGFR 60-89 mL/min/1.73 m 3. Moderately decreased EGFR 30-59 mL/min/1.73 m 4. Severely decreased EGFR 15-29 mL/min/1.73 m 5. Kidney Failure EGFR <15 mL/min/1.73 m Franchesca Elizondo [employer] LAB - CHEMISTRY ORDERABLES [facility] [address] [place] [address], [facility] [phone] * LIPID PROFILE (05/30/2021 8:35 AM CDT) Cholesterol 170 <200 mg/dL 05/30/2021 9:09 AM CDT [facility] Triglycerides 47 <150 mg/dL 05/30/2021 9:09 AM CDT [facility] VLDL Calculated 9 <31 mg/dL 9:09 AM CDT [facility] HDL Cholesterol 87 >40 mg/dL 9:09 AM CDT [facility] LDL Calculated 74 <160 mg/dL 05/30/2021 9:09 AM CDT [facility] Blood BLOOD SPECIMEN / Unknown Lab [...] alter some of these results. Franchesca Elizondo [employer]RO[employer] LAB - CHEMISTRY ORDERABLES [facility] [address] [place] [address], [facility] [phone] Care Teams Vehicle Monitor Technician Relationship Specialty [place] [id number] [address] PCP - General 12/30/22
== END 2025-01-17 10:19 | disposition home or self-care (01) ==
LOC: ANHIMG 10:19
PROVIDERS: PCP Nurse Practitioner Family; Visit Provider Nurse Practitioner Family
DX: Z13.820 Encounter for screening for osteoporosis (principal); M85.88 Other specified disorders of bone density and structure, other site; M85.852 Other specified disorders of bone density and structure, left thigh; M85.851 Other specified disorders of bone density and structure, right thigh
CPT/HCPCS: 77080